=== PATIENT | male | born 1980 | race Caucasian/White ===

== ENCOUNTER 2021-02-05 11:26 | Inpatient (IN) | payer MEDICARE, BC ==
[~2021-02-05] VITALS: Ht 190.5 cm; Wt 154.6 kg
[2021-02-05 12:43] LABS: HEMOGLOBIN 11.1 gm/dl (14.0-17.5); RED BLOOD COUNT 3.62 M/UL (4.20-5.50); WHITE BLOOD COUNT 10.5 K/UL (4.5-11.0)
--- NOTE | 2021-02-05 14:15 | NUR ---
PATIENT NOTED TO HAVE "MATURING" FISTULA TO RIGHT UPPER ARM THAT THE PATIENT STATES ISN'T USED FOR DIALYSIS. PATIENT HAS A DIALYSIS CATHETER IN RIGHT SIDE OF NECK THAT HE STATES IS WHAT IS USED FOR DIALYSIS.
[2021-02-05] MEDS ORDERED: CALCIUM ACETAT667 M1 PO (14:54)
[2021-02-05] MEDS ORDERED: LIDOCAINE-PRILOC5 GM TP (14:55)
[2021-02-05] MEDS ORDERED: SUCRALFATE1 GM PO (14:55)
[2021-02-05] MEDS ORDERED: LINZESS145 MCG PO (14:55)
[2021-02-05] MEDS ORDERED: AMITRIPTYLINE H25 MG PO (14:57)
[2021-02-05] MEDS ORDERED: VITAMIN D21250 MCG PO (14:57)
[2021-02-05] MEDS ORDERED: HUMULIN R500 UNIT/1 SC (14:59)
[2021-02-05] MEDS ORDERED: HYDRALAZINE HC100 MG PO (14:59)
[2021-02-05] MEDS ORDERED: TOPIRAMATE100 MG PO (15:00)
[2021-02-05] MEDS ORDERED: LABETALOL HCL300 MG PO (15:00)
[2021-02-05] MEDS ORDERED: AMLODIPINE BESY10 MG PO (15:01)
[2021-02-05] MEDS ORDERED: CYANOCOBAL1000 MCG/1 INJ (15:03)
[2021-02-05] MEDS ORDERED: CARDURA4 MG PO (15:03)
[2021-02-05] MEDS ORDERED: PROTONIX40 MG PO (15:04)
[2021-02-05] MEDS ORDERED: ATORVASTATIN CA40 MG PO (15:05)
[2021-02-05] MEDS ORDERED: CLONIDINE HCL0.2 MG PO (15:05)
[2021-02-05] MEDS ORDERED: VELPHORO500 MG PO (15:06)
[2021-02-05] MEDS ORDERED: LACTULOSE10 GM/15 M PO (15:08)
[2021-02-05] MEDS ORDERED: OXYBUTYNIN CHLOR5 MG PO (15:09)
[2021-02-05] MEDS ORDERED: DIPHENHYDRAMINE25 M1 PO (15:10)
[2021-02-05] MEDS ORDERED: FISH OIL 1,0001 EACH PO (15:11)
[2021-02-05] MEDS ORDERED: LORATADINE10 MG PO (15:11)
[2021-02-05] MEDS ORDERED: MAPAP500 MG PO (15:12)
[2021-02-06 03:32] LABS: HEMOGLOBIN 10.5 gm/dl (14.0-17.5); RED BLOOD COUNT 3.45 M/UL (4.20-5.50)
[2021-02-06 03:40] LABS: WHITE BLOOD COUNT 14.9 K/UL (4.5-11.0)
[2021-02-08 03:13] LABS: HEMOGLOBIN 9.2 gm/dl (14.0-17.5); RED BLOOD COUNT 3.06 M/UL (4.20-5.50); WHITE BLOOD COUNT 10.5 K/UL (4.5-11.0)
--- NOTE | 2021-02-08 06:08 | NUR ---
AT 1915 ON 02/07/21, POLAR ICE MACHINE REFILLED WITH ICE AND WATER. REFILLED AGAIN AT 2330 02/07/21 AND 0540 02/08/21. PT WORE POLAR ICE ALL NIGHT CONTINUOUSLY WITH NO ISSUES NOTED.
[2021-02-09 05:43] LABS: HEMOGLOBIN 8.7 gm/dl (14.0-17.5); RED BLOOD COUNT 2.91 M/UL (4.20-5.50); WHITE BLOOD COUNT 10.5 K/UL (4.5-11.0)
[2021-02-09 09:14] LABS: HBSAG SCREEN Negative (Negative); HEP A AB, IGM Negative (Negative); HEP B CORE AB, IGM Negative (Negative); HEP C VIRUS AB <0.1 (0.0-0.9)
[2021-02-10 05:56] LABS: HEMOGLOBIN 9.1 gm/dl (14.0-17.5); RED BLOOD COUNT 3.02 M/UL (4.20-5.50); WHITE BLOOD COUNT 12.6 K/UL (4.5-11.0)
[2021-02-11 04:40] LABS: HEMOGLOBIN 8.3 gm/dl (14.0-17.5); RED BLOOD COUNT 2.74 M/UL (4.20-5.50); WHITE BLOOD COUNT 15.4 K/UL (4.5-11.0)
--- NOTE | 2021-02-12 08:23 | NUR ---
bs 242 checked bs and patient gives himself his own insulin. patient on insulin pump gave 13.1 units of humulin r u 500.
--- NOTE | 2021-02-12 11:53 | NUR ---
251 blood sugar, patient administer his own insulin with his own insulin pump.
--- NOTE | 2021-02-12 16:17 | NUR ---
patient administer his via insulin pump 9.3units of humulin r.
--- NOTE | 2021-02-13 08:13 | NUR ---
patient stated did not give any insulim through his insulin pump. bs 126
--- NOTE | 2021-02-13 11:48 | NUR ---
bs 212, patient gives himself via insulin pump 6.1 units of insulin.
[2021-02-14 05:20] LABS: HEMOGLOBIN 8.8 gm/dl (14.0-17.5); RED BLOOD COUNT 2.91 M/UL (4.20-5.50); WHITE BLOOD COUNT 12.9 K/UL (4.5-11.0)
--- NOTE | 2021-02-14 09:46 | NUR ---
late entry:02/13/21 @1518 unable to give patient 1400 medications, paitient still on his dialysis treatment
--- NOTE | 2021-02-14 17:06 | NUR ---
patient have his own insulin pump and gives himself insulin with bs check. bs 228 insulin 6.7 units, bs 201 gives himself 9.1, bs 215 to gives himself .9
[2021-02-15 06:13] LABS: HEMOGLOBIN 8.5 gm/dl (14.0-17.5); RED BLOOD COUNT 2.84 M/UL (4.20-5.50); WHITE BLOOD COUNT 12.6 K/UL (4.5-11.0)
--- NOTE | 2021-02-15 16:36 | NUR ---
bs this am 258- patient stated gave myself 9.2 units of insulin. unable to obtain patient afternoon bs r/t patient on dialysis procedure.
--- NOTE | 2021-02-15 16:46 | NUR ---
@ 1335 when patient back from dialysis. vital signs: 118/59 66 17 and 97.8. patient reports he gave himsel insulin while he was in dialysis. bs 311 this afternoon and gave himself 1.2 units.
[2021-02-16 03:53] LABS: HEMOGLOBIN 8.9 gm/dl (14.0-17.5); RED BLOOD COUNT 2.95 M/UL (4.20-5.50); WHITE BLOOD COUNT 15.2 K/UL (4.5-11.0)
[2021-02-17 08:11] LABS: HEMOGLOBIN 9.2 gm/dl (14.0-17.5); RED BLOOD COUNT 2.95 M/UL (4.20-5.50)
[2021-02-17 08:12] LABS: WHITE BLOOD COUNT 22.5 K/UL (4.5-11.0)
[2021-02-18 06:50] LABS: HEMOGLOBIN 7.7 gm/dl (14.0-17.5); RED BLOOD COUNT 2.6 M/UL (4.20-5.50); WHITE BLOOD COUNT 17.9 K/UL (4.5-11.0)
[2021-02-19 11:48] LABS: HEMOGLOBIN 9.1 gm/dl (14.0-17.5); RED BLOOD COUNT 2.98 M/UL (4.20-5.50); WHITE BLOOD COUNT 15.1 K/UL (4.5-11.0)
[2021-02-19] MEDS ORDERED: ELIQUIS2.5 MG PO (12:44)
[2021-02-19] MEDS ORDERED: HYDROCODON-ACE1 EAC4 PO (12:44)
[2021-02-19] MEDS ORDERED: DULCOLAX5 MG PO (12:44)
[2021-02-19] MEDS ORDERED: OXYCONTIN10 MG PO (12:44)
[2021-02-19] MEDS ORDERED: CYCLOBENZAPRINE10 MG PO (12:44)
[2021-02-19] MEDS ORDERED: POLYETHYLENE GL17 GM PO (12:44)
[2021-02-19] MEDS ORDERED: DOCUSATE SODIU100 MG PO (12:44)
[2021-05-09] MEDS ORDERED: SULFAMETHOXAZO1 EACH PO (07:05)
[2021-05-09] MEDS ORDERED: GLUCAGON EMERGEN1 MG INJ (07:08)
[2021-05-09] MEDS ORDERED: ZOFRAN ODT 4 MG4 MG PO (07:09)
[2021-05-09] MEDS ORDERED: DOXYCYCLINE HY100 MG PO (07:10)
[2021-05-09] MEDS ORDERED: HYDRALAZINE HC100 MG PO (07:20)
[2021-05-09] MEDS ORDERED: TOPAMAX100 MG PO (07:22)
[2021-05-09] MEDS ORDERED: LABETALOL HCL300 MG PO (07:22)
[2021-05-09] MEDS ORDERED: VELPHORO500 MG PO (07:23)
[2021-05-09] MEDS ORDERED: NEPHRO-VITE RX1 EACH PO (07:24)
== END 2021-02-19 16:14 | disposition home health service (06) | DRG 492 ==
LOC: ER1 11:26 → CDU 12:43 → M/S 12:43
PROVIDERS: Emergency Medicine; Internal Medicine; Internal Medicine Nephrology; ADMIT Internal Medicine
PROC: 5A1D70Z Performance of Urinary Filtration, Intermittent, Less than 6 Hours Per Day (ICD-10-PCS; principal; 2021-02-05)
PROC: 0QSG05Z Reposition Right Tibia with External Fixation Device, Open Approach (ICD-10-PCS; 2021-02-15)
PROC: 30233N1 Transfusion of Nonautologous Red Blood Cells into Peripheral Vein, Percutaneous Approach (ICD-10-PCS; 2021-02-15)
DX: S82.101A Unspecified fracture of upper end of right tibia, initial encounter for closed fracture (principal); N18.6 End stage renal disease; I12.0 Hypertensive chronic kidney disease with stage 5 chronic kidney disease or end stage renal disease; E87.1 Hypo-osmolality and hyponatremia; D62 Acute posthemorrhagic anemia; Z68.41 Body mass index [BMI] 40.0-44.9, adult; S82.451A Displaced comminuted fracture of shaft of right fibula, initial encounter for closed fracture; E66.01 Morbid (severe) obesity due to excess calories; K21.9 Gastro-esophageal reflux disease without esophagitis; E78.5 Hyperlipidemia, unspecified; E10.22 Type 1 diabetes mellitus with diabetic chronic kidney disease; E10.42 Type 1 diabetes mellitus with diabetic polyneuropathy; E21.3 Hyperparathyroidism, unspecified; D63.8 Anemia in other chronic diseases classified elsewhere; E87.5 Hyperkalemia; Y93.9 Activity, unspecified; Z79.4 Long term (current) use of insulin; Z88.6 Allergy status to analgesic agent; Z88.1 Allergy status to other antibiotic agents; Z80.1 Family history of malignant neoplasm of trachea, bronchus and lung; Z83.3 Family history of diabetes mellitus; Z87.01 Personal history of pneumonia (recurrent); Y92.9 Unspecified place or not applicable; Z99.3 Dependence on wheelchair; Z79.899 Other long term (current) drug therapy; W10.1XXA Fall (on)(from) sidewalk curb, initial encounter; Z96.41 Presence of insulin pump (external) (internal); G47.33 Obstructive sleep apnea (adult) (pediatric)
CPT/HCPCS: 36415; 36430; 71045; 72170; 73560; 73562; 73590; 73600; 73620; 76000; 80048; 80053; 80074; 82550; 82553; 82728; 82962; 83036; 83540; 83550; 84100; 84132; 84484; 85025; 85027; 85610; 85730; 86850; 86900; 86901; 86920; 90935; 90937; 93005; 94760; 97162; 97530; 99285; C1713; C9113; J0690; J1170; J1644; J2001; J2270; J2405; J2550; J2704; J2765; J3010; J7120; P9016; U0002

== ENCOUNTER → 2021-05-09 | Day surgery (SDC) | payer MEDICARE, BC ==
[~2021-05-09] MED LIST: AMITRIPTYLINE H25 MG PO; AMLODIPINE BESY10 MG PO; ATORVASTATIN CA40 MG PO; CALCIUM ACETAT667 M1 PO; CARDURA4 MG PO; CLONIDINE HCL0.2 MG PO; CYANOCOBAL1000 MCG/1 INJ; CYCLOBENZAPRINE10 MG PO; DIPHENHYDRAMINE25 M1 PO; DOCUSATE SODIU100 MG PO; DOXYCYCLINE HY100 MG PO; DULCOLAX5 MG PO; ELIQUIS2.5 MG PO; FISH OIL 1,0001 EACH PO; GLUCAGON EMERGEN1 MG INJ; HUMULIN R500 UNIT/1 SC; HYDRALAZINE HC100 MG PO; HYDROCODON-ACE1 EAC4 PO; LABETALOL HCL300 MG PO; LACTULOSE10 GM/15 M PO; LIDOCAINE-PRILOC5 GM TP; LINZESS145 MCG PO; LORATADINE10 MG PO; MAPAP500 MG PO; NEPHRO-VITE RX1 EACH PO; OXYBUTYNIN CHLOR5 MG PO; OXYCONTIN10 MG PO; POLYETHYLENE GL17 GM PO; PROTONIX40 MG PO; SUCRALFATE1 GM PO; SULFAMETHOXAZO1 EACH PO; TOPAMAX100 MG PO; TOPIRAMATE100 MG PO; VELPHORO500 MG PO; VITAMIN D21250 MCG PO; ZOFRAN ODT 4 MG4 MG PO
[2021-05-09 06:56] LABS: HEMOGLOBIN 10.2 gm/dl (14.0-17.5); RED BLOOD COUNT 3.52 M/UL (4.20-5.50); WHITE BLOOD COUNT 10.2 K/UL (4.5-11.0)
== END | disposition home or self-care (01) ==
LOC: OR 06:26
PROVIDERS: Orthopaedic Surgery
DX: S82.101D Unspecified fracture of upper end of right tibia, subsequent encounter for closed fracture with routine healing (principal); I12.0 Hypertensive chronic kidney disease with stage 5 chronic kidney disease or end stage renal disease; E11.22 Type 2 diabetes mellitus with diabetic chronic kidney disease; N18.6 End stage renal disease; E78.5 Hyperlipidemia, unspecified; G47.30 Sleep apnea, unspecified; E66.01 Morbid (severe) obesity due to excess calories; K21.9 Gastro-esophageal reflux disease without esophagitis; Z68.41 Body mass index [BMI] 40.0-44.9, adult; Z99.2 Dependence on renal dialysis; Z99.3 Dependence on wheelchair; Z88.1 Allergy status to other antibiotic agents; Z79.4 Long term (current) use of insulin; Z79.899 Other long term (current) drug therapy; Z20.822 Contact with and (suspected) exposure to COVID-19
CPT/HCPCS: 73560; 76000; 80048; 82962; 85027; C1713; J0690; J2001; J2405; J2704; J2765; J3010; J7030; J7120; U0002